=== PATIENT | female | born 1935 | race Caucasian/White ===

== ENCOUNTER 2017-01-20 08:14 | Inpatient (IN) | payer OTHER ==
[2017-01-18 12:29] LABS: HEMATOCRIT 44.6 % (36.0-48.0)
[2017-01-18 12:32] LABS: ASCORBIC ACID (UR NOT ORDER) NEG (NEG); BILIRUBIN, URINE NEGATIVE (NEG); KETONE, URINE NEGATIVE (NEG); LEUKOCYTE ESTERASE(NOT OR NEG (NEG); WBC (NOT ORDERED) (RFLEX) < 1 (0-5)
[2017-01-18 12:37] LABS: CALCIUM, SERUM 9.1 MG/DL (8.5-10.4); CHLORIDE, SERUM 106 MMOL/L (96-112); CO2 (CARBON DIOXIDE) 30 MMOL/L (24-34); CREATININE 1.15 MG/DL (0.55-1.02); GFR AFRICAN AMERICAN 51 ML/MIN (>=60); GFR NON AFRICAN AMERICAN 44 ML/MIN (>=60); GLUCOSE, SERUM 89 MG/DL (60-99); POTASSIUM, SERUM 4.1 MMOL/L (3.5-5.3); SODIUM, SERUM 141 MMOL/L (135-148)
[2017-01-18 12:38] LABS: BUN (BLOOD UREA NITROGEN) 12 MG/DL (6-23)
--- NOTE | ~2017-01-20 | OP ---
Record Of Operation [facility] [address] [place]. [address] NAME: SHANEL CABRERA : 33 STATUS : ADM IN PAT#: [id number] AGE: 81 ADM/REG DATE : 01/20/17 MR#: [id number] REPORT SERV DATE: 01/21/17 DICTATED BY: KIRIT VERDUZCO DATE: 01/21/17 REPORT STATUS : Draft TRANSCRIBED BY: MODL DATE: 01/21/17 DATE OF PROCEDURE: 01/20/2017 TITLE OF OPERATION: Left robotic-assisted laparoscopic partial nephrectomy. PREOPERATIVE DIAGNOSIS: Enhancing left renal mass. POSTOPERATIVE DIAGNOSIS: Enhancing left renal mass. INDICATIONS: Ms. Cabrera is an 81-year-old female with a cystic T1b left renal mass. She is counseled regarding her options. She is here for robotic partial nephrectomy. ANESTHESIA: General. COMPLICATIONS: None. IMPLANTS: 1. 16-[place] Roth catheter. 2. #10 round NENA drain. SPECIMEN: Left kidney tumor. NARRATIVE: The patient was brought to the operating room, identified by her wristband. General anesthesia was induced, and Ancef was given for preoperative antibiotics. A 16- [place] Roth catheter was placed under sterile conditions. She was placed in the left modified flank position and secured to the bed with pads and tape. She was then prepped and draped in sterile fashion. Her abdomen was insufflated to pressure of 15 mmHg using a Veress needle. Standard X-Y port placement was performed with four 8 mm ports on the left side of the body. The abdomen was inspected. There were minimal adhesions. A 12 mm port was placed in the supraumbilical position for an quality assurance assistant port. The patient was rotated and the robot was docked. The operation was begun by dropping the colon along the white line of Toldt exposing the retroperitoneum. The colon was reflected medially to expose the aorta. The spleen and pancreas were sharply lysed off the superior pole of the kidney with care taken not to injure these structures. I entered the retroperitoneum beneath the ureter and gonadal vein lifting these and the kidney up off the psoas muscle. A solitary renal artery and vein were identified. Fibrofatty tissue surrounding these structures were taken with cautery. Next, the kidney was dropped back down to its orthotopic position. The perinephric fat was then excised over the tumor. The cystic tumor was identified precisely in a circumferential fashion. The artery was then clamped. I resected the tumor completely leaving a small rim of normal tissue on the tumor. There was no cyst injury. The collecting system was entered. The base of the tumor was then run with two running 3-0 V- Loc sutures in perpendicular fashion. The capsule of the kidney was closed with 2-0 Vicryl sutures using a sliding Weck technique. Once the reconstruction was complete, the kidney was unclamped. Total ischemia time was 19 minutes. There was no ongoing bleeding. Surgifoam dressing was placed over the renal defect and the robot was then undocked with the ports removed sequentially. A #10 round NENA drain was placed through the most inferior Record Of Operation [address] [id number] NAME: SHANEL CABRERA : 34 STATUS : ADM IN PAT#: [id number] AGE: 81 ADM/REG DATE : 01/20/17 MR#: [id number] REPORT SERV DATE: 01/21/17 DICTATED BY: KIRIT VERDUZCO DATE: 01/21/17 REPORT STATUS : Draft TRANSCRIBED BY: ADY DATE: 01/21/17 robotic port. The supraumbilical incision was enlarged to the skin and fascia level and the tumor after replacing the bag was removed from the body and sent to Pathology for analysis. The fascia was closed with 0 Monocryl suture in a [id number] fashion. Skin was closed with 4-0 Monocryl suture in subcuticular fashion. Dermabond dressing was placed. The patient was awoken from anesthesia and transferred to the recovery room in stable condition. There were no complications. INGRID/ADY Kirit Verduzco MD / [id number] CC: MD Che Garza M.D.
[~2017-01-20 08:14] MED LIST: ATEN50 PO; SYN075 PO; VITAMIN B-121000 MC1 SL
[2017-01-20 13:09] LABS: BASOPHILS 0.2 %; BASOPHILS ABSOLUTE 0.01 10/3/uL (0.0-0.16); EOSINOPHILS 0.4 %; EOSINOPHILS ABSOLUTE 0.02 10/3/uL (0.0-0.53); HEMATOCRIT 39.5 % (36.0-48.0); HEMOGLOBIN 13.5 g/dL (12.0-16.0); IMMATURE GRANULOCYTES 0.4 %; IMMATURE GRANULOCYTES ABSOLUTE 0.02 10/3/uL (0.0-0.11); LYMPHOCYTES 22.4 %; LYMPHOCYTES ABSOLUTE 1.27 10/3/uL (0.67-4.30); MANUAL DIFF NO %; MEAN CORPUS HGB CONC 34.2 g/dL (32.0-36.0); MEAN CORPUSCULAR HEMOGLOB 29.9 pg (26.0-34.0); MEAN CORPUSCULAR VOLUME 87.4 fL (80-100); MONOCYTES 1.8 %; NEUTROPHILS 74.8 %; NEUTROPHILS ABSOLUTE 4.25 10/3/uL (2.02-8.40); PLATELET COUNT 128 10/3/uL (150-400); RBC DISTRIBUTION WIDTH 13.2 % (12.0-16.0); RED CELL COUNT 4.52 10/6/uL (4.0-5.6); WHITE BLOOD CELLS 5.7 10/3/uL (4.5-10.5)
[2017-01-20 13:21] LABS: BUN (BLOOD UREA NITROGEN) 13 MG/DL (6-23); CALCIUM, SERUM 8.4 MG/DL (8.5-10.4); CHLORIDE, SERUM 110 MMOL/L (96-112); CO2 (CARBON DIOXIDE) 26 MMOL/L (24-34); CREATININE 1.11 MG/DL (0.55-1.02); GFR AFRICAN AMERICAN 54 ML/MIN (>=60); GFR NON AFRICAN AMERICAN 46 ML/MIN (>=60); POTASSIUM, SERUM 3.9 MMOL/L (3.5-5.3); SODIUM, SERUM 142 MMOL/L (135-148)
[2017-01-20 13:23] LABS: GLUCOSE, SERUM 116 MG/DL (60-99)
[2017-01-21 06:47] LABS: BASOPHILS 0.1 %; BASOPHILS ABSOLUTE 0.01 10/3/uL (0.0-0.16); EOSINOPHILS 0.1 %; EOSINOPHILS ABSOLUTE 0.01 10/3/uL (0.0-0.53); HEMATOCRIT 36.8 % (36.0-48.0); HEMOGLOBIN 12.4 g/dL (12.0-16.0); IMMATURE GRANULOCYTES 0.3 %; IMMATURE GRANULOCYTES ABSOLUTE 0.03 10/3/uL (0.0-0.11); LYMPHOCYTES 13.6 %; MEAN CORPUS HGB CONC 33.7 g/dL (32.0-36.0); MEAN CORPUSCULAR HEMOGLOB 29.7 pg (26.0-34.0); MEAN PLATELET VOLUME 9.3 fL (9.2-13.0); MONOCYTES 6.9 %; MONOCYTES ABSOLUTE 0.76 10/3/uL (0.21-1.20); NEUTROPHILS ABSOLUTE 8.69 10/3/uL (2.02-8.40); RBC DISTRIBUTION WIDTH 13.1 % (12.0-16.0); RED CELL COUNT 4.18 10/6/uL (4.0-5.6)
[2017-01-21 06:49] LABS: MANUAL DIFF NO %
[2017-01-21 07:10] LABS: BUN (BLOOD UREA NITROGEN) 10 MG/DL (6-23); CHLORIDE, SERUM 108 MMOL/L (96-112); CO2 (CARBON DIOXIDE) 24 MMOL/L (24-34); CREATININE 1.29 MG/DL (0.55-1.02); GFR AFRICAN AMERICAN 45 ML/MIN (>=60); GFR NON AFRICAN AMERICAN 39 ML/MIN (>=60); POTASSIUM, SERUM 4.3 MMOL/L (3.5-5.3); SODIUM, SERUM 139 MMOL/L (135-148)
[2017-01-21 07:17] LABS: PLATELET COUNT 141 10/3/uL (150-400); PLATELET ESTIMATE SLT DEC (ADEQUATE); RBC MORPHOLOGY NORM (NORMAL)
[2017-01-21 07:23] LABS: GLUCOSE, SERUM 143 MG/DL (60-99)
[2017-01-21 11:06] LABS: CPK 141 U/L (0-200); PHOSPHORUS, SERUM 2.4 MG/DL (2.5-4.5); TROPONIN I <0.02 NG/ML (<0.05)
[2017-01-21 11:08] LABS: CK-MB 1.5 NG/ML
[2017-01-21 16:22] LABS: ULTRASENSITIVE TSH 0.865 MCIU/ML (0.358-3.740)
[2017-01-22 06:03] LABS: BASOPHILS 0.2 %; BASOPHILS ABSOLUTE 0.02 10/3/uL (0.0-0.16); EOSINOPHILS 1.6 %; EOSINOPHILS ABSOLUTE 0.15 10/3/uL (0.0-0.53); HEMATOCRIT 35.3 % (36.0-48.0); IMMATURE GRANULOCYTES 0.3 %; IMMATURE GRANULOCYTES ABSOLUTE 0.03 10/3/uL (0.0-0.11); LYMPHOCYTES ABSOLUTE 2.23 10/3/uL (0.67-4.30); MEAN CORPUSCULAR HEMOGLOB 30.2 pg (26.0-34.0); MEAN CORPUSCULAR VOLUME 88.7 fL (80-100); MEAN PLATELET VOLUME 9.6 fL (9.2-13.0); MONOCYTES ABSOLUTE 0.74 10/3/uL (0.21-1.20); NEUTROPHILS 65.9 %; NEUTROPHILS ABSOLUTE 6.13 10/3/uL (2.02-8.40); PLATELET COUNT 125 10/3/uL (150-400); RBC DISTRIBUTION WIDTH 13.5 % (12.0-16.0); RED CELL COUNT 3.98 10/6/uL (4.0-5.6); WHITE BLOOD CELLS 9.3 10/3/uL (4.5-10.5)
[2017-01-22 06:12] LABS: BUN (BLOOD UREA NITROGEN) 10 MG/DL (6-23); CHLORIDE, SERUM 113 MMOL/L (96-112); CO2 (CARBON DIOXIDE) 22 MMOL/L (24-34); CREATININE 1.03 MG/DL (0.55-1.02); GFR AFRICAN AMERICAN 59 ML/MIN (>=60); GFR NON AFRICAN AMERICAN 51 ML/MIN (>=60); GLUCOSE, SERUM 80 MG/DL (60-99); POTASSIUM, SERUM 4.8 MMOL/L (3.5-5.3); SODIUM, SERUM 142 MMOL/L (135-148)
[2017-01-22 06:22] LABS: PLATELET ESTIMATE SLT DEC (ADEQUATE)
[2017-01-22 06:23] LABS: MANUAL DIFF NO %
[2017-01-22] MEDS ORDERED: DSS PO (11:47)
[2017-01-22] MEDS ORDERED: PCET PO (11:48)
== END 2017-01-22 18:59 | disposition home or self-care (01) | DRG 657 ==
LOC: SDC 08:14 → 4SO 12:50
PROVIDERS: Nurse Practitioner Gerontology; Urology
PROC: 8E0W4CZ Robotic Assisted Procedure of Trunk Region, Percutaneous Endoscopic Approach (ICD-10-PCS; principal; 2017-01-20 10:15)
PROC: 0TB14ZZ Excision of Left Kidney, Percutaneous Endoscopic Approach (ICD-10-PCS; principal; 2017-01-20 10:15)
DX: D41.02 Neoplasm of uncertain behavior of left kidney (principal); J98.11 Atelectasis; D69.6 Thrombocytopenia, unspecified; N18.3 Chronic kidney disease, stage 3 (moderate); G62.9 Polyneuropathy, unspecified; R00.1 Bradycardia, unspecified; E03.9 Hypothyroidism, unspecified; I12.9 Hypertensive chronic kidney disease with stage 1 through stage 4 chronic kidney disease, or unspecified chronic kidney disease; H35.30 Unspecified macular degeneration; R26.9 Unspecified abnormalities of gait and mobility
CPT/HCPCS: 36415; 71010; 80048; 81001; 82550; 82553; 82570; 83735; 84100; 84443; 84484; 85014; 85018; 85025; 86850; 86900; 86901; 88307; 88341; 88342; 93005; A9270-GY; J0690; J2250; J2795; J3010